=== PATIENT | female | born 1960 | race Caucasian/White ===

== ENCOUNTER 2018-04-02 15:12 | Observation (INO) | payer MEDICARE ==
[~2018-04-02 15:12] MED LIST: Dexamethasone 20 MG/5 ML VIAL ONE; Lidocaine 1% PF 5 ML VIAL ONE; Ondansetron HCl/PF 4 MG/2 ML Vial ONE; PROPOFOL 200 MG/20 ML VIAL ONE
[2018-04-02] MEDS ORDERED: Clindamycin/D5W 600 mg/50 ml Premix Bag ONE (16:04)
[2018-04-02] MEDS ORDERED: Esmolol 100 MG/10 ML VIAL ONE (16:04)
[2018-04-02 16:18] LABS: #Basophils 0.1 thou/uL (0.0-0.2); #Eosinphils 0.2 thou/uL (0.0-0.7); #Lymphocytes 3.2 thou/uL (1.20-3.40); #Monocytes 0.5 thou/uL (0.11-0.59); %Basophils 1.8 % (0.0-1.0); %Lymphocytes 39.6 % (21.0-51.0); %Monocytes 5.8 % (0.0-10.0); %Neutrophils 49.8 % (42.0-75.0); Hemoglobin 15.2 g/dL (12.0-16.0); Mean Corpuscular HGB CONC 34.6 g/dL (32.0-36.0); Mean Corpuscular Hemoglobin 32.4 pg (27.0-31.0); Mean Corpuscular Volume 93.7 fL (78.0-98.0); Mean Platelet Volume 6.2 fL (7.4-10.4); Platelet Count 205 thou/uL (130-400); RBC Distribution Width 12.2 % (11.5-14.5); Red Blood Cell (RBC) Count 4.69 mill/uL (4.20-5.40); White Blood Cell (WBC) Count 8.1 thou/uL (4.8-10.8)
[2018-04-02 16:24] LABS: Prothrombin Time 13.6 SEC (12.0-14.7)
--- NOTE | 2018-04-02 16:27 | RAD ---
CHEST 1 VIEW: HISTORY: Preoperative exam. COMPARISON: None. FINDINGS: Portable upright chest demonstrates dorsal column stimulators terminating in the midthoracic spine. Slight elongation of the aorta. Normal cardiac silhouette. The pulmonary vessels and hilum are norm al. No mass. No consolidation. No pneumothorax or osseous abnormalities. IMPRESSION: No acute cardiopulmonary process. POS: ANNA
[2018-04-02 16:29] LABS: BHCG - Serum Negative (NEGATIVE); Pregs Control Background? CLEAR/WHITE (CLR/WHITE); Pregs Control Bar Appear? YES (CONTROL BAR)
[2018-04-02 16:34] LABS: Anion Gap 10 mmol/L (10-20); BUN (Urea Nitrogen) 8 mg/dL (9.8-20.1); Calc. Creatinine Clearance 67 mL/min (70-130); Calcium 9.2 mg/dL (7.8-10.44); Carbon Dioxide 29 mmol/L (22-29); Chloride 103 mmol/L (98-107); Estimated GFR-MDRD 73; Glucose 83 mg/dL (70-105); Potassium 3.6 mmol/L (3.5-5.1); Sodium 138 mmol/L (136-145)
[2018-04-02] MEDS ORDERED: Midazolam HCl 2 mg/2 ml Vial ONE ×2 (16:54→19:39)
[2018-04-02] MEDS ORDERED: Fentanyl 100 MCG/2 ML VIAL ONE (19:00)
[2018-04-02] MEDS ORDERED: Bacitracin Zinc Ointment 30 gm TUBE ONE (22:37)
--- NOTE | 2018-04-02 23:02 | RAD ---
LEFT WRIST TWO VIEW: 04/02/18 HISTORY: ORIF. COMPARISON: Wrist radiograph 02/07/18. FINDINGS: Multiple spot images were sent from the Operating Room. Satisfactory postoperative alignment of the d istal radius fracture. IMPRESSION: Fluoroscopy for surgical use. POS: BELINDA
[2018-04-02] MEDS ORDERED: Promethazine HCl 25 MG/ML VIAL SLOW IVP PRN (23:13)
[2018-04-02] MEDS ORDERED: Ondansetron HCl/PF 4 MG/2 ML Vial IVP PRN (23:13)
[2018-04-02] MEDS ORDERED: Promethazine HCl 25 MG/ML VIAL IM PRN (23:13)
[2018-04-02] MEDS ORDERED: Milk Of Magnesia 30 ML UDCUP PO PRN (23:26)
[2018-04-02] MEDS ORDERED: Acetaminophen 325 MG TAB PO PRN (23:26)
[2018-04-02] MEDS ORDERED: Communication Order-Pharmacy FS SCH ×2 (23:30→23:45)
[2018-04-02] MEDS ORDERED: TETANUS AND DIPHTHERIA TOX/PF 0.5 ML DISP.SYRIN IM SCH (23:30)
[2018-04-02] MEDS ORDERED: PROVENTIL INHALER 6.7 G (200 INHALATIONS) INH PRN (23:32)
[2018-04-02] MEDS ORDERED: traZODone HCl 50 MG TAB PO PRN (23:32)
[2018-04-02] MEDS ORDERED: SUMAtriptan Succinate 50 MG TAB PO PRN (23:32)
[2018-04-02] MEDS ORDERED: Albuterol Sulfate 2.5 mg/3 ml Neb NEB PRN (23:32)
[2018-04-03] MEDS ORDERED: Vancomycin HCl 1 GM in Premix Bag 1 BAG IVPB SCH (01:00)
[2018-04-03] MEDS: Vancomycin HCl 1 GM in Premix Bag 1 BAG IVPB SCH ×2 (02:48→15:29)
[2018-04-03 03:12] VITALS: BMI 21.7
[2018-04-03] MEDS ORDERED: Thyroid 60 MG TAB PO SCH (09:00)
[2018-04-03] MEDS ORDERED: Estradiol 1 MG TAB PO SCH (09:00)
[2018-04-03] MEDS ORDERED: Hydrochlorothiazide 25 MG TAB PO SCH (09:00)
[2018-04-03] MEDS ORDERED: Topiramate 25 MG TAB PO SCH (09:00)
[2018-04-03] MEDS ORDERED: DULoxetine 60 MG CAP PO SCH (09:00)
[2018-04-03] MEDS ORDERED: ETODOLAC 500 MG PO SCH (09:00)
[2018-04-03] MEDS ORDERED: Aspirin 81 mg Enteric Coated Tablet PO SCH ×2 (09:00)
[2018-04-03] MEDS ORDERED: Bupropion 150 MG XL TAB PO SCH (09:00)
[2018-04-03] MEDS: tiZANidine HCl 4 MG TAB PO SCH ×2 (09:16→15:28)
[2018-04-03] MEDS: clonazePAM 0.5 MG TAB PO SCH ×2 (09:17→15:28)
[2018-04-03] MEDS: METHadone HCl 10 MG TAB PO SCH ×2 (09:17→12:21)
[2018-04-03] MEDS: Gabapentin 300 MG CAP PO SCH ×2 (09:17→15:28)
[2018-04-03] MEDS: HYDROcodone/Acetaminophen 10/325 mg Tablet PO PRN ×2 (12:21→16:33)
[2018-04-03 16:00] VITALS: BP 130/74; TEMP 98.2
--- NOTE | 2018-04-05 12:47 | OP ---
DATE OF SURGERY: 04/03/2018 SURGEON: Ramiro Swain M.D. ANESTHESIA: 1. Excellent upper extremity axillary block. 2. Augmented with LMA technique general. PREOPERATIVE DIAGNOSIS: Malunion displaced distal left radius fracture already 6 weeks old. PROCEDURES PERFORMED: 1. Application of long arm splint. 2. Malunion osteotomy distal radius fracture, left with a 22 modifier for complexity. 3. Major bone grafting. 4. Open reduction and internal fixation, left distal radius fracture, 3-part. 5. C-arm supervision. TOURNIQUET TIME: 120 minutes. ESTIMATED BLOOD LOSS: 20 mL. Final 2-plane displacement was shortened and sagittal plane fragmented with 4 mm step off, requiring 2 plane correction through one incision making this a difficult fracture requesting the 22 modifier t o the malunion osteotomy and for distal radius fracture, it will be a 3-part once we performed the os teotomy. DESCRIPTION OF PROCEDURE: After successful general endotracheal anesthesia, the limb was then preppe d and draped. We just ensured with the C-arm, there was no gross motion with manipulation, under flu oroscopy, we saw no gross motion. We identified the fracture planes, which clearly was a sagittal pl ane split with the dorsal 15% intact, especially at the medial fragment, but across and then overall shortened the frontal plane without mid carpal changes. For this reason, we performed a volar approa ch after exsanguinating the limb inflating the tourniquet to 250 mmHg pressure. We then able to iden tify flexor carpi radialis tendon in the radial artery identified pronator quadratus and released it creating an ulnar based flap and then exposed the knee joint. We could easily see the fracture line where it had healed where it had a cavernous type bone. We confirmed this with a C-arm and then bega n a series of very gentle advancements in the sagittal, frontal plane, so we could reestablish the pr evious fracture line. This took approximately 20 minutes of careful use of alternating osteotome str aight and curved [place] and saw sagittal type on a TPS instrumentation handle. Once we had reached an area, there was 2-3 mm of joint space, we then gently tapped the articular surface, and had created a sagittal triangular base bone piece in line with the previous incision. Now, while we were doing t his, we had 2 large 0.062 wires to help control the fragment, placed in appropriate position to corre ct the sagittal plane tilt, but straighten these wires and making them perpendicular to the arm board . We then gently pulled this fragment up at the same time correcting the angulation and leaving woun d for bone grafting. This was done all from the sagittal plane and then we placed two 0.062 K-wires across it to hold it in place in a position where we probably used the plate and then a transradial _ ____ to hold it back to the main fragment. We then took a large cancellous bone graft, creating, too k the chips and cut them into thirds and slid them in the defect all the way up to the periarticular region to maintain this graft in this position, so it would not collapse later. We then placed a 4-hole subarticular, 4-hole down the shaft proximal to the osteotomy cut into the no w osteotomized malunion, but reduced site for the open reduction and internal fixation of this distal radius fracture. The bone grafting was completed as listed above. We then began a standard drill m easure screw technique first putting 2 screws in the graft using a slightly longer screw then the [facility] ers stand away from the area of Corrina's tubercle. Screw length and subarticular region was confirme d to include with oblique views, especially designed to see the screw on the dorsum. We did not see violation of these two first screws. Then, we placed a screw in the glide hole proximal to the fract ure, felt that the construct and maintained a +1.5 radial positive position in frontal plane where it has once been 1.5 to 2 mm radial ulnar positive. We also had corrected the tilt in the sagitt al plane. There was no further step off indicative of at least 4 mm advancement in the sagittal plan e at least 3 mm in the frontal plane. The plate screw construct maintained this, we had no further s crew and had a screw joint penetration and we augmented the bone graft some through the defect and th e plate at the end using approximately 7.5 mL of the 15 mL of bone graft given most of any cubed form . The patient then had the wrist put through to range of motion passively could achieve 75 degrees palm ar flexion, 70 degrees dorsiflexion with a loose endpoint, but stable. There was no mid carpal joint abnormality indeed. The small amount of dorsal intercalated stability seen before was not corrected . We did not have to pin the carpal bones. Tourniquet was deflated. Hemostasis obtained. We closed the wound first by using a 2-0 Vicryl to re approximate the pronator quadratus back and radial ulnar base flap back to the radial remnant. Then, we closed subcutaneous tissue with a running 4-0 Monocryl undyed and the skin with 4-0 nylon interru pted mattress pattern. Bulky dressing was applied along with a sugar tong splint and the patient lef t the operating room without evidence of anesthetic or operative complication.
--- NOTE | 2018-04-05 15:05 | EKG ---
Test Reason : Blood Pressure : / mmHG Vent. Rate : 064 BPM Atrial Rate : 064 BPM P-R Int : 138 ms QRS Dur : 070 ms QT Int : 434 ms P-R-T Axes : 047 021 040 degrees QTc Int : 447 ms Normal sinus rhythm Normal ECG No previous ECGs available Confirmed by PARK KITCHEN MD ([id number]) on 04/05/2018 3:04:55 PM Referred By: DAGOBERTO Confirmed By:PARK KITCHEN MD
== END 2018-04-03 19:17 | disposition home or self-care (01) ==
LOC: SDC 15:12 → 2SW 04-03 00:59
PROVIDERS: ADMIT Orthopaedic Surgery Hand Surgery; ATTEND Orthopaedic Surgery Hand Surgery
PROC: 0PSJ04Z Reposition Left Radius with Internal Fixation Device, Open Approach (ICD-10-PCS; principal; 2018-04-03)
PROC: 0PUJ07Z Supplement Left Radius with Autologous Tissue Substitute, Open Approach (ICD-10-PCS; 2018-04-03)
DX: M80.832A Other osteoporosis with current pathological fracture, left forearm, initial encounter for fracture (principal); M19.90 Unspecified osteoarthritis, unspecified site; J45.909 Unspecified asthma, uncomplicated; I10 Essential (primary) hypertension; F17.210 Nicotine dependence, cigarettes, uncomplicated; Z79.891 Long term (current) use of opiate analgesic; Z79.899 Other long term (current) drug therapy; Z88.2 Allergy status to sulfonamides; Z88.5 Allergy status to narcotic agent; Z88.0 Allergy status to penicillin; Z88.8 Allergy status to other drugs, medicaments and biological substances; Z98.890 Other specified postprocedural states; W19.XXXA Unspecified fall, initial encounter; Y93.51 Activity, roller skating (inline) and skateboarding
CPT/HCPCS: 25350; 25405; 71045; 73100; 76001; 80048; 84703; 85025; 85610; 86850; 86900; 86901; 93005; 96365; C1713 ×3; G0378; 36415; 93010; J1100; J2001; J2250; J2270; J2405; J2704; J3010; J3370; J3490

== ENCOUNTER 2023-08-11 00:36 | Observation (INO) | payer MEDICARE ==
[2023-08-11] MEDS ORDERED: Ondansetron PF 4 MG/2 ML Vial IVP PRN (02:46)
[2023-08-11] MEDS ORDERED: Ondansetron ODT 4 MG TAB PO PRN (02:46)
[2023-08-11] MEDS ORDERED: Nitroglycerin 0.4 MG TAB (25 Tab Bottle) SL PRN (02:46)
[2023-08-11] MEDS ORDERED: Potassium Chloride 20 MEQ TAB PO SCH (03:00)
[2023-08-11] MEDS ORDERED: Benzocaine/Menthol 1 LOZ LOZ PO PRN (03:09)
[2023-08-11] MEDS ORDERED: Nicotine 14 MG PATCH TD PRN (03:48)
[2023-08-11 07:40] LABS: #Eosinphils 0.3 thou/uL (0.0-0.7); #Monocytes 0.4 thou/uL (0.11-0.59); #Neutrophils 2.7 thou/uL (1.40-6.50); %Basophils 0.8 % (0.0-1.0); %Lymphocytes 32.7 % (21.0-51.0); %Monocytes 7.6 % (0.0-10.0); %Neutrophils 53.7 % (42.0-75.0); Hemoglobin 13.9 g/dL (12.0-16.0); Mean Corpuscular HGB CONC 33.1 g/dL (32.0-36.0); Mean Corpuscular Hemoglobin 33.2 pg (27.0-31.0); Mean Corpuscular Volume 100.2 fl (78.0-98.0); Mean Platelet Volume 8.8 fL (7.4-10.4); Platelet Count 174 10x3/uL (130-400); RBC Distribution Width 13.2 % (11.5-14.5); Red Blood Cell (RBC) Count 4.19 mill/uL (4.20-5.40)
[2023-08-11] MEDS: Aspirin Chewable 81 MG TAB PO SCH (07:55)
[2023-08-11 07:59] LABS: Anion Gap 10 mmol/L (10-20); BUN (Urea Nitrogen) 13 mg/dL (9.8-20.1); Calc. Creatinine Clearance 90 mL/min (70-130); Calcium 8.5 mg/dL (7.8-10.44); Carbon Dioxide 27 mmol/L (23-31); Cardiac Risk 2.2 (Less than 4.5); Chloride 107 mmol/L (98-107); Cholesterol 146 mg/dl (< 200 Desired); Estimated GFR 103; Glucose 92 mg/dL (80-115); HDL Cholesterol 66 mg/dL (>60 Neg Risk); LDL Cholesterol, Calculated 67 mg/dL; Magnesium 1.9 mg/dL (1.6-2.6); Potassium 4.2 mmol/L (3.5-5.1); Sodium 140 mmol/L (136-145); Triglycerides 64 mg/dL (Less than 150)
[2023-08-11] MEDS: Acetaminophen 325 MG TAB PO PRN ×2 (09:41→19:59)
[2023-08-11] MEDS ORDERED: Regadenoson 0.4 MG/5 ML SYRINGE ONE (10:31)
[2023-08-11] MEDS ORDERED: Albuterol 2.5 MG (3 mL) NEB NEB PRN (14:39)
[2023-08-11] MEDS: Gabapentin 300 MG CAP PO SCH ×2 (14:46→20:00)
[2023-08-11] MEDS: Cipro 250 MG TAB PO SCH (19:58)
[2023-08-11] MEDS: DULoxetine 60 MG CAP PO SCH (19:59)
[2023-08-11] MEDS ORDERED: traMADol HCl 50 MG TAB PO PRN (20:00)
[2023-08-12 03:56] VITALS: BMI 21.1
[2023-08-12] MEDS: Cipro 250 MG TAB PO SCH (05:52)
[2023-08-12 05:55] LABS: #Basophils 0.1 thou/uL (0.0-0.2); #Eosinphils 0.2 thou/uL (0.0-0.7); #Monocytes 0.5 thou/uL (0.11-0.59); %Basophils 0.8 % (0.0-1.0); %Eosinophils 3.7 % (0.0-10.0); %Monocytes 8.8 % (0.0-10.0); %Neutrophils 50.4 % (42.0-75.0); Hematocrit 43.6 % (36.0-47.0); Hemoglobin 14.7 g/dL (12.0-16.0); Mean Corpuscular HGB CONC 33.7 g/dL (32.0-36.0); Mean Corpuscular Hemoglobin 32.7 pg (27.0-31.0); Mean Platelet Volume 8.9 fL (7.4-10.4); Platelet Count 202 10x3/uL (130-400); RBC Distribution Width 12.7 % (11.5-14.5); White Blood Cell (WBC) Count 5.9 10x3/uL (4.8-10.8)
[2023-08-12] MEDS ORDERED: Thyroid 60 MG TAB PO SCH (06:00)
[2023-08-12 06:14] LABS: Mean Corpuscular Volume 96.9 fl (78.0-98.0)
[2023-08-12 06:39] LABS: Anion Gap 12 mmol/L (10-20); BUN (Urea Nitrogen) 15 mg/dL (9.8-20.1); Calc. Creatinine Clearance 87 mL/min (70-130); Calcium 8.7 mg/dL (7.8-10.44); Carbon Dioxide 27 mmol/L (23-31); Chloride 103 mmol/L (98-107); Estimated GFR 103; Glucose 86 mg/dL (80-115); Potassium 3.6 mmol/L (3.5-5.1); Sodium 138 mmol/L (136-145)
[2023-08-12 06:44] LABS: Troponin I Less than 0.010 ng/mL (< 0.028)
[2023-08-12] MEDS ORDERED: BuPROPion XL 150 MG ER.TAB PO SCH (09:00)
[2023-08-12] MEDS: DULoxetine 60 MG CAP PO SCH (10:23)
[2023-08-12] MEDS: Gabapentin 300 MG CAP PO SCH (10:23)
[2023-08-12] MEDS: Aspirin Chewable 81 MG TAB PO SCH (10:23)
[2023-08-12 12:02] VITALS: BP 151/92; TEMP 97.8
[2023-08-14] MEDS ORDERED: FLU VACC QS2023-24(6MOS UP)/PF 60 MCG/0.5 ML SYRINGE IM ONE (04:00)
== END 2023-08-12 12:02 | disposition home or self-care (01) ==
LOC: 2NO 02:59
PROVIDERS: ADMIT Student in an Organized Health Care Education/Training Program; ATTEND Internal Medicine
PROC: B24BZZZ Ultrasonography of Heart with Aorta (ICD-10-PCS; principal; 2023-08-12)
DX: R07.9 Chest pain, unspecified (principal); E03.9 Hypothyroidism, unspecified; E78.5 Hyperlipidemia, unspecified; G89.29 Other chronic pain; M19.90 Unspecified osteoarthritis, unspecified site; J45.909 Unspecified asthma, uncomplicated; G43.909 Migraine, unspecified, not intractable, without status migrainosus; E87.6 Hypokalemia; I10 Essential (primary) hypertension; F17.210 Nicotine dependence, cigarettes, uncomplicated; Z88.0 Allergy status to penicillin; Z88.1 Allergy status to other antibiotic agents; Z88.2 Allergy status to sulfonamides; Z88.5 Allergy status to narcotic agent; Z79.899 Other long term (current) drug therapy; Z79.890 Hormone replacement therapy
CPT/HCPCS: 78452; 80048 ×2; 80061; 83735; 84443; 84484; 85025 ×2; 93017; 93306; 94640; A9502; G0378 ×2; J2785; 36415; A9503; J7611

== ENCOUNTER 2024-01-24 10:05 | Outpatient (CLI) | payer OTHER | END 2024-01-24 10:06 | disposition home or self-care (01) | LOC: BICMAMMO 10:05 | PROVIDERS: ATTEND Student in an Organized Health Care Education/Training Program | DX: Z12.31 Encounter for screening mammogram for malignant neoplasm of breast (principal); Z13.820 Encounter for screening for osteoporosis; M19.91 Primary osteoarthritis, unspecified site; M85.851 Other specified disorders of bone density and structure, right thigh; M85.852 Other specified disorders of bone density and structure, left thigh | CPT/HCPCS: 77063; 77067; 77080 ==